=== PATIENT | male | born 2000 | race Caucasian/White ===

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

== ENCOUNTER → 2023-10-03 | Day surgery (SDC) | payer OTHER ==
[~2023-10-03] VITALS: Ht 172.7 cm; Wt 78.6 kg
[~2023-10-03] MED LIST: AMPICILLIN SODIUM 2 GM/NS 100 ML IV ONE; BUSP15TA3 PO; GABA-529 PO; KETAMINE HCL 50 MG/ML 10 ML VIAL IVP ONE; NALT50TA PO; QUET50TA24 PO; RINGERS SOLUTION,LACTATED 1,000 ML IV ONE; SERT-440 PO; TRAZ150T80 PO
== END | disposition home or self-care (01) ==
LOC: SURGERY 05:54
PROVIDERS: ATTEND Dentist General Practice
DX: K05.6 Periodontal disease, unspecified (principal); Z53.8 Procedure and treatment not carried out for other reasons
CPT/HCPCS: J0290; J3490; J7120

== ENCOUNTER 2024-07-17 05:26 | Day surgery (SDC) | payer OTHER ==
[~2024-07-17] VITALS: Ht 172.7 cm; Wt 78.5 kg
[~2024-07-17 05:26] MED LIST changes: -AMPICILLIN SODIUM 2 GM/NS 100 ML IV ONE; -KETAMINE HCL 50 MG/ML 10 ML VIAL IVP ONE; -NALT50TA PO; +NALT50TA6 PO; -RINGERS SOLUTION,LACTATED 1,000 ML IV ONE
[2024-07-17] MEDS ORDERED: AMPICILLIN SODIUM 2 GM/NS 100 ML IV ONE (07:20)
[2024-07-17] MEDS ORDERED: RINGERS SOLUTION,LACTATED 1,000 ML IV ONE (08:16)
[2024-07-17] MEDS ORDERED: MIDAZOLAM HCL 5 MG/ML VIAL ONE (08:25)
[2024-07-17 09:17] LABS: BASOPHILS % (AUTO) 0.8 % (0.0-2.0); HEMATOCRIT 43.6 % (41-53); HEMOGLOBIN 14.6 g/dL (13.5-17.5); LYMPHOCYTES # (AUTO) 1.7 K/uL (1.0-4.8); MEAN CORPUSCULAR HEMOGLOBIN 31.4 pg (26.0-34.0); MEAN CORPUSCULAR HGB CONC 33.6 G/dL (31.0-37.0); MEAN CORPUSCULAR VOLUME 94 fL (80-100); MONOCYTES # (AUTO) 0.3 K/uL (0.1-1.0); MONOCYTES % (AUTO) 7.7 % (2.0-9.0); NEUTROPHILS # (AUTO) 2.3 K/uL (1.8-7.7); NEUTROPHILS % (AUTO) 51.5 % (40.0-70.0); PLATELET COUNT (AUTO) 170 K/uL (150-450); RED BLOOD CELL COUNT(AUTO) 4.66 MIL/uL (4.50-5.90); RED CELL DISTRIBUTION WIDTH 13.2 % (11.5-14.5); WHITE BLOOD COUNT (AUTO) 4.5 K/uL (4.5-11.0)
[2024-07-17] MEDS: RINGERS SOLUTION,LACTATED 1,000 ML IV ONE (09:23)
[2024-07-17 09:30] LABS: ANION GAP 8 mmol/L (8-16); CALCIUM, TOTAL 8.6 mg/dL (8.8-10.5); CARBON DIOXIDE 28 mmol/L (22-29); CHLORIDE 105 mmol/L (98-107); GLOMERULAR FILTR. RATE CALC > 60 mL/min (>60); GLUCOSE,RANDOM 88 mg/dL (70-110); POTASSIUM 3.7 mmol/L (3.5-5.1); SODIUM SERUM 141 mmol/L (136-145); UREA NITROGEN, BLOOD 17 mg/dL (7-18)
[2024-07-17 09:33] LABS: IRON, SERUM 55 mcg/dL (50-175)
[2024-07-17 09:42] LABS: ALANINE AMINOTRANSFERASE 32 U/L (12-78); ALKALINE PHOSPHATASE 106 U/L (46-116); ASPARTATE AMINOTRANSFERASE 27 U/L (15-37); BILIRUBIN,TOTAL 0.5 mg/dL (0.1-1.0); THYROID STIMULATING HORMONE 2.94 uIU/mL (0.36-3.74); TOTAL PROTEIN, SERUM 6.9 g/dL (6.4-8.2)
[2024-07-17 09:46] LABS: VITAMIN B12 LEVEL 578 pg/mL (211-911); VITAMIN D,TOTAL (25-0H) 23 ng/mL (30-100)
[2024-07-17 09:46] LABS: PROTHROMBIN TIME 11.6 SEC (9.4-11.6)
[2024-07-17 10:31] LABS: HEMOGLOBIN A1C 5.1 % (3.8-5.6)
[2024-07-17] MEDS ORDERED: SUGAMMADEX SODIUM 200 MG/2 ML VIAL IVP ONE (12:00)
[2024-07-17] MEDS ORDERED: DEXAMETHASONE SOD PHOS 4 MG/ML VIAL IVP ONE (12:00)
[2024-07-17] MEDS ORDERED: KETAMINE HCL 50 MG/ML 10 ML VIAL IVP ONE (12:00)
[2024-07-17] MEDS ORDERED: GLYCOPYRROLATE 0.2 MG/ML VIAL IM ONE (12:00)
[2024-07-17] MEDS ORDERED: ROCURONIUM BROMIDE 10 MG/ML 5 ML VIAL IVP ONE (12:00)
[2024-07-17] MEDS ORDERED: PROPOFOL 1% 20 ML VIAL IVP ONE (12:00)
[2024-07-17] MEDS ORDERED: ONDANSETRON HCL 4 MG/2 ML VIAL IVP ONE (12:00)
== END 2024-07-17 11:55 | disposition home or self-care (01) ==
LOC: SURGERY 05:26
PROVIDERS: ATTEND Dentist General Practice
DX: K05.30 Chronic periodontitis, unspecified (principal); K03.6 Deposits [accretions] on teeth; K59.00 Constipation, unspecified; Z79.899 Other long term (current) drug therapy; F41.9 Anxiety disorder, unspecified; G47.00 Insomnia, unspecified; F84.0 Autistic disorder; Z79.01 Long term (current) use of anticoagulants; Z98.890 Other specified postprocedural states
CPT/HCPCS: 41899; 71045; 80053; 82248; 82607; 83036; 83540; 84443; 85025; 85610; 85730; 36415; 93005; 82306; J0290; J2704; J1100; J3490 ×4; J2405; J2250; J7120; Z7610